=== PATIENT | male | born 1990 | race Caucasian/White ===

== ENCOUNTER 2023-01-04 19:07 | Emergency (ER) | payer SELFPAY ==
[2023-01-04 19:15] VITALS: BP 118/72; PULSE 79; RESP 18; TEMP 36.9; O2SAT 100
--- NOTE | 2023-01-04 19:40 | ED_ITS ---
HPI - Wound/Laceration General Chief Complaint: Laceration/Wound Stated Complaint: Left Pointer Finger Lac with Knife Time Seen by Provider: 01/04/23 19:08 History of Present Illness HPI narrative: This 32-year-old male was at work using a knife to cut food when the knife slipped and injured the distal portion of his left index finger. He has a flap- type laceration that does involve part of the nail. He states that he thinks his tetanus status is well out of date but wants to declined any vaccination today because he states his insurance kicks in tomorrow. Related Data Home Medications Medication Instructions Recorded Confirmed No Known Home Medications 01/04/23 01/04/23 Allergies Allergy/AdvReac Type Severity Reaction Status Date / Time No Known Drug Allergies Allergy Verified 01/04/23 19:19 Review of Systems Status of ROS: Reports: 10 or more systems reviewed and unremarkable except as noted in History and below Narrative: Constitutional: No fevers, no weight gain or loss. Eyes: No discharge. No vision changes. HENT: No congestion, no sore throat, no ear pain. Cardiovascular: No chest pain, no palpitations. Respiratory: No shortness of breath, no wheezes, no cough. Gastrointestinal: No abdominal pain, no vomiting, no diarrhea. Genitourinary: No dysuria, no hematuria. Musculoskeletal: Normal range of motion. Left index finger injury as described above. Skin: No rashes, no pruritis. Neurological: No dizziness, weakness, sensory change, speech change. Endo/Heme/Allergies: No bruising or bleeding. No polydipsia. Pysch: no suicidality, no anxiety, no insomnia. All other systems reviewed and are negative. Exam Narrative: Exam Narrative: Constitutional: Well-developed, well-nourished, no acute distress. HEENT: Normocephalic, atraumatic. Neck: Normal range of motion. Nontender. Supple. Heart: Intact distal pulses. Lungs: No chest discomfort. No wheezes, rhonchi, or rales. Abdomen: Nontender. Back: Normal range of motion. Extremities: Normal range of motion. Distal portion of the left index finger has a laceration that is a flap-type laceration involving the skin. The fingernail is partially cut into but not completely avulsed. Skin: Intact. No rash. Warm. No erythema or pallor. Neurologic: No altered sensation. No weakness. Alert and oriented. Psychiatric: No suicidality. No anxiety or depression. No insomnia. Nursing notes and vitals signs are reviewed. Const: Vital Signs, click to edit/add: Vital Signs - 24 hr 01/04/23 19:15 Temperature 98.5 F Pulse Rate [Left P ulse Oximeter] 79 Respiratory Rate 18 Blood Pressure [Ri ght Upper Arm] 118/72 Pulse Oximetry 100 Oxygen Delivery Me thod Room Air Course Vital Signs Vital signs: Initial Vital Signs Temperature 98.5 F 01/04/23 19:15 Temperature Source Temporal Artery Scan 01/04/23 19:15 Pulse Rate 79 01/04/23 19:15 Pulse Rhythm 01/04/23 19:15 Respiratory Rate 18 01/04/23 19:15 Blood Pressure 118/72 01/04/23 19:15 Blood Pressure Mean 87 01/04/23 19:15 Blood Pressure Position Sitting 01/04/23 19:15 Pulse Oximetry 100 01/04/23 19:15 Oxygen Delivery Method 01/04/23 19:15 Vital Signs Temperature 98.5 F 01/04/23 19:15 Pulse Rate 79 01/04/23 19:15 Respiratory Rate 18 01/04/23 19:15 Blood Pressure 118/72 01/04/23 19:15 Pulse Oximetry 100 01/04/23 19:15 Oxygen Delivery Method 01/04/23 19:15 Temperature 98.5 F 01/04/23 19:15 Pulse Rate 79 01/04/23 19:15 Respiratory Rate 18 01/04/23 19:15 Blood Pressure 118/72 01/04/23 19:15 Pulse Oximetry 100 01/04/23 19:15 Oxygen Delivery Method 01/04/23 19:15 MDM - Wound/Laceration MDM Narrative Medical decision making narrative: This patient has an injury to his left index finger that is a flap-type injury that is about 2 cm in length. I explained that this wound would be best repaired with Dermabond as the skin edges are lined up nicely. Dermabond was applied with excellent results. The injury to the fingernail should resolve also on its own. Band-Aid is applied. Instructions were given regarding wound care. The patient declined a tetanus vaccination and states that he will follow-up with his doctor after his insurance is in place. Discharge Plan Discharge Clinical Impression: Laceration Patient Disposition: Home, Self-Care Condition: Improved Additional Instructions: Keep wound clean and dry. Follow up with MD for tetanus vaccination. Return if worsening. Prescriptions: No Action No Known Home Medications Follow Up/Referrals: Logan Arita MD [Primary Care Provider] - Stand Alone Forms: [employer] Info Instructions
[2023-01-04 19:49] VITALS: BP 107/61; PULSE 75; RESP 18; TEMP 36.6; O2SAT 98
== END 2023-01-04 20:02 | disposition home or self-care (01) ==
LOC: ED 19:58
PROVIDERS: Emergency Provider Emergency Medicine Emergency Medical Services
DX: S61.211A Laceration without foreign body of left index finger without damage to nail, initial encounter (principal); W26.0XXA Contact with knife, initial encounter
CPT/HCPCS: 99282; 99283; 99284

== ENCOUNTER 2023-10-21 15:51 | Emergency (ER) | payer SELFPAY ==
[2023-10-21 16:30] VITALS: BP 116/76; PULSE 83; RESP 18; TEMP 36.7; O2SAT 97; BMI 19.5
--- NOTE | 2023-10-21 18:33 | ED.WOUNDLAC ---
HPI - Wound/Laceration General Chief Complaint: Laceration/Wound Stated Complaint: cut on hand Time Seen by Provider: 10/21/23 17:55 History of Present Illness HPI narrative: This 32-year-old male comes in with laceration to his right index finger and a small 1 also on his right middle finger. 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 This occurred at work. His tetanus status is up-to-date. Related Data Home Medications Medication Instructions Recorded Confirmed No Known Home Medications 01/04/23 10/21/23 Allergies Allergy/AdvReac Type Severity Reaction Status Date / Time No Known Drug Allergies Allergy Verified 10/21/23 16:35 Review of Systems Status of ROS: Reports: 10 or more systems reviewed and unremarkable except as noted in History and below Narrative: Constitutional: No fevers, no weight gain or loss. Eyes: No discharge. No vision changes. HENT: No congestion, no sore throat, no ear pain. Cardiovascular: No chest pain, no palpitations. Respiratory: No shortness of breath, no wheezes, no cough. Gastrointestinal: No abdominal pain, no vomiting, no diarrhea. Genitourinary: No dysuria, no hematuria. Musculoskeletal: Normal range of motion. Skin: No rashes, no pruritis. Finger lacerations as described above. Neurological: No dizziness, weakness, sensory change, speech change. Endo/Heme/Allergies: No bruising or bleeding. No polydipsia. Pysch: no suicidality, no anxiety, no insomnia. All other systems reviewed and are negative. PFSH PFSH Social History Smoking Status: Never smoker Do you use any of these nicotine containing products: None Second hand tobacco smoke exposure: No How often do you have a drink containing alcohol: never AUDIT-C Alcohol total score: 0 Non-prescribed substance use: denies use Little interest or pleasure in doing things: several days Feeling down, depressed, or hopeless: not at all Exam Narrative: Exam Narrative: Constitutional: Well-developed, well-nourished, no acute distress. HEENT: Normocephalic, atraumatic. Neck: Normal range of motion. Nontender. Supple. Heart: Intact distal pulses. Lungs: No chest discomfort. No wheezes, rhonchi, or rales. Abdomen: Nontender. Back: Normal range of motion. Extremities: Normal range of motion. Right index finger has a 3 cm irregular laceration. The right middle finger has a small 1 cm laceration. Skin: Intact. No rash. Warm. No erythema or pallor. Neurologic: No altered sensation. No weakness. Alert and oriented. Psychiatric: No suicidality. No anxiety or depression. No insomnia. Nursing notes and vitals signs are reviewed. Const: Vital Signs, click to edit/add: Vital Signs - 24 hr 10/21/23 16:30 Temperature 98.1 F Pulse Rate [Pulse Oximeter] 83 Respiratory Rate 18 Blood Pressure [Ri t Upper Arm] 116/76 Pulse Oximetry 97 Oxygen Delivery Me thod Room Air Course Vital Signs Vital signs: Initial Vital Signs Temperature 98.1 F 10/21/23 16:30 Temperature Source Temporal Artery Scan 10/21/23 16:30 Pulse Rate 83 10/21/23 16:30 Respiratory Rate 18 10/21/23 16:30 Blood Pressure 116/76 10/21/23 16:30 Blood Pressure Mean 89 10/21/23 16:30 Blood Pressure Position Sitting 10/21/23 16:30 Pulse Oximetry 97 10/21/23 16:30 Oxygen Delivery Method Room Air 10/21/23 16:30 Vital Signs Temperature 98.1 F 10/21/23 16:30 Pulse Rate 83 10/21/23 16:30 Respiratory Rate 18 10/21/23 16:30 Blood Pressure 116/76 10/21/23 16:30 Pulse Oximetry 97 10/21/23 16:30 Oxygen Delivery Method Room Air 10/21/23 16:30 Temperature 98.1 F 10/21/23 16:30 Pulse Rate 83 10/21/23 16:30 Respiratory Rate 18 10/21/23 16:30 Blood Pressure 116/76 10/21/23 16:30 Pulse Oximetry 97 10/21/23 16:30 Oxygen Delivery Method Room Air 10/21/23 16:30 MDM - Wound/Laceration MDM Narrative Medical decision making narrative: This patient comes in with lacerations to his right index and middle finger as described above. The wounds were cleansed and I did discuss repair options including suture and Dermabond. The patient elected to have Dermabond as the skin edges are well approximated. Dermabond was applied to both these wounds with excellent results. A Band-Aid was then applied and instructions were given regarding wound care. Discharge Plan Discharge Clinical Impression: Laceration Patient Disposition: Home, Self-Care Condition: Improved Additional Instructions: Keep wound clean and dry. Follow up with MD as needed or return if worsening. Prescriptions: No Action No Known Home Medications Follow Up/Referrals: Provider,Not a Local [Primary Care Provider] - Stand Alone Forms: [employer] Info Instructions
== END 2023-10-21 19:11 | disposition home or self-care (01) ==
LOC: ED 18:48
PROVIDERS: Emergency Provider Emergency Medicine Emergency Medical Services; PCP Family Medicine
DX: S61.210A Laceration without foreign body of right index finger without damage to nail, initial encounter (principal); S61.212A Laceration without foreign body of right middle finger without damage to nail, initial encounter; Y93.G1 Activity, food preparation and clean up; W31.89XA Contact with other specified machinery, initial encounter
CPT/HCPCS: 12001; 95992; 99282; 99284

== ENCOUNTER 2024-10-22 17:37 | Emergency (ER) | payer OTHER, SELFPAY ==
[2024-10-22 18:05] VITALS: BP 104/56; PULSE 89; TEMP 36.6; O2SAT 95; BMI 18.4
[2024-10-22 18:11] VITALS: RESP 18
--- NOTE | 2024-10-22 18:21 | CRLHL7_ITS ---
For Patients: As a result of the Century Cures Act, medical imaging exams and procedure reports are released immediately into your electronic medical record. You may view this report before your referring provider. If you have questions, please contact your health care provider. Indication: Melena, diarrhea, periumbilical pain Technique: CT through the abdomen and pelvis following 65 mL Isovue 370 IV contrast Comparison: None Findings: Lower chest: No acute abnormality appreciated. Hepatobiliary: No significant parenchymal abnormality is appreciated. Spleen: Unremarkable. Pancreas: No acute abnormality appreciated. Adrenal glands: No acute abnormality appreciated. Kidneys: No significant parenchymal abnormality appreciated. No visualized calculi. No hydronephrosis. Bowel: No obstruction. No focal perienteric or pericolonic stranding is appreciated. The appendix is visualized and appears unremarkable. Vascular: No acute abnormality appreciated. Lymph nodes: No gross lymphadenopathy. Peritoneum: No free air. No free fluid. : No acute abnormality appreciated. Soft tissues: No acute abnormality appreciated. Bones: No acute fracture. No lytic or blastic lesion. Impression: No abnormal findings appreciated to account for patient`s reported symptoms. Please note that all CT scans at this facility use dose modulation, iterative reconstruction, and/or weight-based dosing when appropriate to reduce radiation dose to as low as reasonably achievable. Dictated by David Shaw MD @ 10/22/2024 7:26:56 PM (Electronically Signed)
--- NOTE | 2024-10-22 18:38 | ED_ITS ---
HPI - General Adult General Date Seen: 10/22/24 Chief complaint: Abdominal Pain Stated complaint: stomach pain, loose stool, no apettite Time Seen by Provider: 10/22/24 18:11 Source: patient Mode of arrival: ambulatory Limitations: no limitations History of Present Illness HPI narrative: Patient is a 33-year-old male presenting to the emergency department for abdominal pain, nausea, diarrhea. He states he has been having intermittent melena, abdominal pain, loose stool for the past 3 or 4 months but states over the past 2 weeks symptoms have gotten worse. States the melena has been more consistent along with the loose stools. Has not noticed any bright red blood in his stool. The pain was tolerable though until today when it suddenly became severe rated about 7/10 in pain. States pain now is currently a 2/10 and much more tolerable. Most of the pain is around his periumbilical region. He has not had much of an appetite either and states he has lost about 10 lb in the pas t 2 weeks. Has no history of abdominal surgeries. No family history of inflammatory bowel disease that he is aware of. Denies fevers, chills, chest pain, shortness of breath lightheadedness, dizziness, weakness, numbness, dysuria. No other concerns noted Related Data Home Medications ?Medication ?Instructions ?Recorded ?Confirmed No Known Home Medications 01/04/23 10/22/24 Allergies Allergy/AdvReac Type Severity Reaction Status Date / Time No Known Drug Allergies Allergy Verified 10/22/24 18:44 Review of Systems Status of ROS: Reports: 10 or more systems reviewed and unremarkable except as noted in History and below PFSH PFS Social History Smoking Status: Never smoker Do you use any of these nicotine containing products: None Second hand tobacco smoke exposure: No How often do you have a drink containing alcohol: never How often do you have six or more drinks on one occasion: Never AUDIT-C Alcohol total score: 0 Non-prescribed substance use: marijuana (any form) Non-prescribed substance use details: 10/21 stopped marijuana use Exam Narrative: Exam Narrative: Const: Well-nourished, Well-developed, in mild distress Eyes: PERRL, no conjunctival injection, and symmetrical lids HENT: Atraumatic external nose and ears. Moist mucous membranes. Neck: Symmetric, trachea midline, No thyromegaly. CVS: RRR, No murmurs or gallops. Peripheral pulses 2+ and equal in all extremities RESP: Unlabored respiratory effort. Clear to auscultation bilaterally. GI: Mild periumbilical tenderness, Nondistended, No rebound or guarding. MSK:Extremities w/o deformity, Normal Active ROM Skin: Warm, Dry. No rashes or lesions. Neuro: Normal Muscle tone, No focal neurological deficits. Psych: Awake, Alert, & Oriented x3. Appropriate mood and affect. Const: Vital Signs, click to edit/add: Vital Signs - 24 hr 10/22/24 18:05 10/22/24 18:11 Temperature 98 F Pulse Rate [Pulse Oximeter] 89 Respiratory Rate 18 Blood Pressure [Ri t Upper Arm] 104/56 L Pulse Oximetry 95 Oxygen Delivery Me thod Room Air Course Vital Signs Vital signs: Initial Vital Signs Temperature 98 F 10/22/24 18:05 Temperature Source Temporal Artery Scan 10/22/24 18:05 Pulse Rate 89 10/22/24 18:05 Pulse Rhythm Regular 10/22/24 18:05 Blood Pressure 104/56 L 10/22/24 18:05 Blood Pressure Mean 72 10/22/24 18:05 Pulse Oximetry 95 10/22/24 18:05 Oxygen Delivery Method Room Air 10/22/24 18:05 Vital Signs Temperature 98 F 10/22/24 18:05 Pulse Rate 89 10/22/24 18:05 Blood Pressure 104/56 L 10/22/24 18:05 Pulse Oximetry 95 10/22/24 18:05 Oxygen Delivery Method Room Air 10/22/24 18:05 Temperature 98 F 10/22/24 18:05 Pulse Rate 89 10/22/24 18:05 Respiratory Rate 18 10/22/24 18:11 Blood Pressure 104/56 L 10/22/24 18:05 Pulse Oximetry 95 10/22/24 18:05 Oxygen Delivery Method Room Air 10/22/24 18:05 Medical Decision Making [facility] Narrative Medical decision making narrative: Patient is a 33-year-old male presenting to emergency department for abdominal pain, black tarry diarrhea. Based on his history of some concern for melena. Possibly due to inflammatory bowel disease, colitis, gastroenteritis, peptic ulcer disease, or malignancy. With the periumbilical pain there is also some concern for appendicitis. Will do a CT scan with IV contrast for better evaluation. Was do CBC, CMP, COVID/flu/RSV, lipase. Will also attempt to get a stool sample from him. Currently he does not want a rectal exam will try to provide a stool sample himself. Lab work shows no concerning abnormalities. Viral swabs are negative. CT scan reviewed by myself the radiologist shows no concerning abnormalities. Symptoms have been tolerable in the emergency department. He was unable to provide a stool sample and I did mention I would like to do a rectal exam but he would prefer to take a cup only get stool sample and a follow-up with his primary care provider. Consider is otherwise normal lab work I believe this is reasonable. He will be discharged at this time. Lab Data Labs: Lab Results 10/22/24 Range/Units 18:30 WBC 9.02 (4.50-11.00) K/uL RBC 4.46 (4.30-5.90) m/uL Hgb 14.7 (13.5-17.5) gm/dL Hct 42.6 (37.0-53.0) % MCV 96 (80-100) fL MCH 33 (26-34) pg MCHC 35 (32-36) gm/dL RDW Coeff of Larry 11.4 L (11.5-15.5) % Plt Count 209 (140-440) K/uL Neut % (Auto) 74.8 H (42.0-72.0) % Lymph % (Auto) 19.3 L (20-44) % Terry % (Auto) 5.0 (0.0-11.0) % Eos % (Auto) 0.2 (0.0-7.0) % Baso % (Auto) 0.6 (0.0-3.0) % Neut # (Auto) 6.70 (1.7-7.0) K/uL Lymph # (Auto) 1.70 (0.90-2.90) K/uL Terry # (Auto) 0.50 (0.00-0.90) K/UL Eos # (Auto) 0.02 (0.00-0.50) K/uL Baso # (Auto) 0.05 (0.00-0.30) K/uL Abs Immat Gran (auto) 0.01 (0.00-0.30) K/uL Imm/Tot Granulo (auto) 0.1 % Sodium 138 (135-149) mmol/L Potassium 3.3 L (3.6-5.1) mmol/L Chloride 107 (96-114) mmol/L Carbon Dioxide 23 (20-32) mmol/L Anion Gap 8 (7-15) mEq/L BUN 14 (5-24) mg/dL Creatinine 0.9 (0.5-1.5) mg/dL Estimated Creat Clear 99.79 Estimated GFR 116 ml/min Glucose 98 (60-115) mg/dL Calcium 9.2 (8.4-10.6) mg/dL Total Bilirubin 1.2 (0.1-1.5) mg/dL AST 20 (12-35) U/L ALT 16 (4-50) U/L Alkaline Phosphatase 70 (40-150) U/L Total Protein 6.7 (6.0-8.3) g/dL Albumin 4.6 (3.3-5.0) g/dL Lipase 46 (23-300) U/L SARS-CoV-2 (PCR) Negative SARS-CoV-2 (Negative) Influenza Type A (PCR) Negative PCR FLU A (Negative) Influenza Type B (PCR) Negative PCR FLU B (Negative) RSV (PCR) Negative PCR RSV (Negative) Imaging Data CT scan abdomen and pelvis: Attestation: I have reviewed the pertinent imaging results. Radiologist's impression: No abnormal findings appreciated to account for patient`s reported symptoms. Please note that all CT scans at this facility use dose modulation, iterative reconstruction, and/or weight-based dosing when appropriate to reduce radiation dose to as low as reasonably achievable. Dictated by David Shaw MD @ 10/22/2024 7:26:56 PM Discharge Plan Discharge Clinical Impression: Abdominal pain Qualifiers: Abdominal location: periumbilical Qualified Code(s): R10.33 - Periumbilical pain Diarrhea Qualifiers: Diarrhea type: unspecified type Qualified Code(s): R19.7 - Diarrhea, unspecified Patient Disposition: Home, Self-Care Condition: Stable Instructions: Acute Abdominal Pain (ED) Additional Instructions: Is important to follow-up with your primary care provider Dr Tom. Return to emergency department for new or worsening symptoms. Prescriptions: No Action No Known Home Medications Follow Up/Referrals: Logan Arita MD [Primary Care Provider] - Stand Alone Forms: [employer] Info Instructions
[2024-10-22 18:39] LABS: Basophils Absolute Auto 0.05 K/uL (0.00-0.30); Basophils Percent Auto 0.6 % (0.0-3.0); Eosinophils Absolute Auto 0.02 K/uL (0.00-0.50); Eosinophils Percent Auto 0.2 % (0.0-7.0); Hematocrit 42.6 % (37.0-53.0); Hemoglobin* 14.7 gm/dL (13.5-17.5); Immature Granulocytes Abs Auto 0.01 K/uL (0.00-0.30); Immature Granulocytes Pct Auto 0.1 %; Lymphocytes Percent Auto 19.3 % (20-44); Mean Corpuscular HGB Conc 35 gm/dL (32-36); Mean Corpuscular Hemoglobin 33 pg (26-34); Mean Corpuscular Volume 96 fL (80-100); Neutrophils Percent Auto 74.8 % (42.0-72.0); Platelet Count* 209 K/uL (140-440); RDW Coefficient of Variation % 11.4 % (11.5-15.5); Red Blood Count 4.46 m/uL (4.30-5.90); White Blood Count* 9.02 K/uL (4.50-11.00)
[2024-10-22 18:44] LABS: Slide Review Reflex No
[2024-10-22 18:52] LABS: Albumin* 4.6 g/dL (3.3-5.0); Chloride* 107 mmol/L (96-114); Potassium* 3.3 mmol/L (3.6-5.1); Sodium* 138 mmol/L (135-149)
[2024-10-22 18:54] LABS: Creatinine* 0.9 mg/dL (0.5-1.5); Est. Creatinine Clearance* 99.79; Estimated Glomerular Filt Rate 116 ml/min
[2024-10-22 18:55] LABS: Alanine Aminotransferase* 16 U/L (4-50); Alkaline Phosphatase* 70 U/L (40-150); Anion Gap 8 mEq/L (7-15); Aspartate Amino Transferase* 20 U/L (12-35); Bilirubin Total* 1.2 mg/dL (0.1-1.5); Blood Urea Nitrogen* 14 mg/dL (5-24); Calcium* 9.2 mg/dL (8.4-10.6); Carbon Dioxide* 23 mmol/L (20-32); Glucose* 98 mg/dL (60-115); Lipase* 46 U/L (23-300); Total Protein* 6.7 g/dL (6.0-8.3)
[2024-10-22 19:17] LABS: PCR FLU A Negative PCR FLU A (Negative); PCR FLU B Negative PCR FLU B (Negative); PCR RSV Negative PCR RSV (Negative); SARS PCR* Negative SARS-CoV-2 (Negative)
== END 2024-10-22 19:56 | disposition home or self-care (01) ==
PROVIDERS: Emergency Provider Student in an Organized Health Care Education/Training Program; PCP Family Medicine
DX: R10.9 Unspecified abdominal pain (principal); R19.7 Diarrhea, unspecified
CPT/HCPCS: 36415; 74177; 80053; 82270; 83690; 85025; 87631; 99283; 99284; 99285; Q9967